=== PATIENT | female | born 1995 | race African-American/Black ===

== ENCOUNTER 2020-06-03 08:45 | Emergency (ER) | payer SELFPAY ==
[~2020-06-03] VITALS: Ht 165.1 cm; Wt 104.3 kg
[~2020-06-03 08:45] MED LIST: MAGNESIUM CITR296 M1 PO; ZOFRAN4 M1 ORAL
[2020-06-03 09:05] VITALS: BP 130/89
--- NOTE | 2020-06-03 09:30 | Emergency Room Report ---
History of Present Illness General Chief Complaint: Eye Problems Source: Patient Present Illness HPI History of present illness: Patient is an obese female 25-year-old complaining of chronic eye issues for the last 2 years, maybe "even longer". She states that she started to feel pressure behind her eyes worsening over the past several months. She was seen by her trucking supervisor yesterday at [facility] who did a dilated funduscopic examination which revealed elevated optic nerve head pressure bilaterally and referred her to [facility] ophthalmology for evaluation of her papilledema. She tried to call [facility] this morning, Thursday, but no one answered, so her mother prompted her to come to the ER for her chronic issue. She has been told by regulatory affairs strategy specialist in the past that she has "brain high blood pressure" and to lose weight, however she is a nervous eater and it has been difficult for her. She denies head trauma, loss of consciousness, lethargy, fever, neck pain, ataxia, weakness, focal weakness, chest pain, vision changes, shortness of breath, or other complaints. The patient's symptoms were gradual onset, severity was moderate, duration since 2 years. Past medical history: obesity Past surgical history: Denies Smoking: Denies Alcohol use: Denies Drug use: Denies Review of systems: CONST: No fevers or chills, No night sweats PULMONARY: No productive cough, No shortness of breath CARDIAC: No chest pain, No palpitations GI: No vomiting, No diarrhea , No melena_or_BRBPR : No dysuria, No hematuria, No discharge NEURO: No new_focal_weakness_or_numbness, No confusion, No vision changes. Pressure behind eyes. 14 point Review of Systems is otherwise negative except per HPI Physical Exam: GENERAL: Awake_alert_ nontoxic, no acute distress Spo2 98% on [RA], [normal] EYES: Extraocular muscles are intact. Conjunctivae clear. Lids without swelling ENT: External nose and ear normal_in_appearance. Oropharynx clear. Head_ atraumatic, Moist_oral_mucosa NECK: No JVD. No meningismus. No thyromegaly. Supple. Trachea midline RESP: Normal respiratory effort. Symmetric rise. No stridor. Clear_to_ auscultation_No_rales_No_wheezes CARDIAC: Regular rate and regular rhythm on_auscultation No_significant pedal edema. ABDOMEN: Soft. Nondistended. Nontender_No_rebound_or_guarding. MSK: Normal muscle tone, without rigidity. Extremities without asymmetric deformity or swelling. SKIN: Warm and dry. No visible cyanosis or pallor NEUROLOGIC: Alert, oriented x3. Motor_and_sensation_grossly_intact. No truncal ataxia. Gait_normal Psych: Normal mood and affect, normal judgment and insight External: no evidence of periorbital rash, swelling, proptosis, lacerations, abrasions, or foreign body (OU) Lids / Lashes: normal without any lig lag (OU) Conjunctiva: normal, no injection or chemosis (OU) Sclera: white, without any injection (OU) Cornea: clear without any visible defect, foreign body, or corneal ulcer Anterior Chamber: deep, quiet, without any cell or flare (OU) Foreign body: none visualized Visual acuity: [see nursing note OD 20/20, OS 20/25, OU 20/20] Pupils: equal, round, and reactive bilaterally Extraocular movements intact without evidence of entrapment Visual [place] full to confrontation - COORDINATION OF CARE Case was discussed with: Patient; Patient's Family Medical Decision Making/Plan: Chronic eye pressure 2/2 chronic papilledema vs glaucoma vs conjunctivitis Referral note from Dr Saldana OD reviewed. VA is intact OU 20/20. Patient was referred to opthalmologist at [facility] for tomorrow morning. VA remains intact in ED. Patient has no focal neurologic deficits or ataxia from her chronic blurry vision x 2 years. Differential for the patients headache includes primary headache (migraine, tension, cluster), idiopathic intracranial HTN, doubt subarachnoid hemorrhage doubt mass Headache not sudden and severe, not worst headache of life, no family hx of SAH , neurologically intact without any persistent vomiting. Not consistent with subarachnoid hemorrhage, dural venous thrombosis, increased intracranial pressure, or significant tumor at this time. Patient without meningismus, mastoid / sinus tenderness, altered mental status or seizure. Doubt subdural abscess, meningitis, encephalitis, mastoiditis. No significant trauma mechanism , not anticoagulated. No evidence of subdural / epidural hematoma. [place] CT head criteria negative. No temporal tenderness, jaw claudication or vision loss. Eyes are reactive, with normal appearing anterior chambers. No evidence of temporal arteritis or acute angle closure glaucoma. Given the patients presentation, and normal neurologic exam, advanced imaging of the head with CT was not felt to be necessary or indicated and not pursued after weighing the risks and benefits of radiation. Patient has set follow up with optho specialist from trucking supervisor this week. Due to the chronic nature of the patient's symptoms, she was educated on weight loss and told to take medication such as tylenol or motrin for her dull headache. Strict return ER precautions discussed. Allergies: Coded Allergies: No Known Allergies (Unverified , 06/09/14) COVID-19 Screening Contact w/high risk pt: No Experienced COVID-19 symptoms?: No COVID-19 Testing performed BEHAVIORAL HEALTH DIRECTOR: No Patient History Now: No Nursing Documentation-[facility] Past Medical History: No Stated History Physical Exam Vital Signs Date Time Temp Pulse Resp B/P (MAP) Pulse Ox O2 Delivery O2 Flow Rate FiO2 06/03/20 08:50 98.8 76 16 130/89 (103) 98 Room Air Sp02 EP Interpretation: reviewed, normal Medical Decision Making Diagnostic Impression: Primary Impression: Papilledema Additional Impression: Obesity Last Vital Signs Date Time Temp Pulse Resp B/P (MAP) Pulse Ox O2 Delivery O2 Flow Rate FiO2 06/03/20 09:05 98.8 16 130/89 98 Room Air 06/03/20 08:50 76 Disposition: HOME, SELF-CARE Condition: Stable Referrals: NOT CHOSEN IPA/,REFERRING (PCP) Marti Arias D.O. Jun 03, 2020 09:30
[2020-06-03 09:41] VITALS: BP 130/89
== END 2020-06-03 09:42 | disposition home or self-care (01) ==
LOC: EMR 09:20
DX: H47.10 Unspecified papilledema (principal); E66.9 Obesity, unspecified; Z68.38 Body mass index [BMI] 38.0-38.9, adult
CPT/HCPCS: 99282